=== PATIENT | male | born 1950 | race Caucasian/White ===

== ENCOUNTER 2016-10-16 12:37 | Inpatient (IN) | payer OTHER, MEDICARE ==
--- NOTE | ~2016-10-16 | DS ---
Discharge Summary [facility] [address] [place]. [address] NAME: CHANA POOLE : 48 STATUS : ADM IN [facility]#: [id number] AGE: 66 ADM/REG DATE : 10/16/16 MR#: [id number] REPORT SERV DATE: 10/19/16 DICTATED BY: ERLIN ARRIAZA DATE: 10/18/16 REPORT STATUS : Draft TRANSCRIBED BY: OSWALD DATE: 10/18/16 ADMISSION DATE: 10/16/2016 DISCHARGE DATE: 10/19/2016 PROCEDURES DONE: 1. 10/17/2015, chest x-ray: Lungs are clear. Heart size is normal. 2. 10/16/2016, x-ray right hip: There is fracture of the right femoral neck, with impaction. There is no evidence of dislocation, lytic or blastic areas, bony erosions, or periosteal reactions. 3. 10/17/2015, pelvis x-ray: Fracture of right femoral neck. 4. 10/17/2016, x-ray portable of pelvis: Postsurgical changes compatible with recent right hip arthroplasty for repair of previously demonstrated right femoral neck fracture. 5. 10/17/2016, operative report by Dr. Li. PREOPERATIVE DIAGNOSIS: Right hip displaced femoral neck fracture. POSTOPERATIVE DIAGNOSIS: Right hip displaced femoral neck fracture. PROCEDURE: Uncemented total right hip arthroplasty. CONSULT: Dr. Li for Ortho. REASON FOR ADMISSION: Fall from work. HISTORY OF HOSPITAL STAY: A 66-year-old white male with past medical history of coronary artery disease status post CABG x4 in July 2015, hypertension, hyperlipidemia, chronic kidney disease stage III, BPH, presenting with a fall at work. The patient was admitted for further evaluation from the result of fall from work. The patient apparently had a right femoral neck fracture. Dr. Mark was consulted from Orthopedics for further evaluation and treatment, and the patient underwent a right total hip arthroplasty on 10/17/2016. The patient had no complications. The patient is being recommended to home with home health. DISPOSITION: The patient is doing fine, no complaints. ACTIVITY: As tolerated. DIET: Cardiac. INSTRUCTION UPON DISCHARGE: 1. The patient to follow up with PMD within one to two weeks' time. 2. The patient to follow up with Orthopedics within one to two weeks' time. MEDICATIONS UPON DISCHARGE: 1. Amlodipine 10 mg p.o. daily. 2. Lipitor 40 mg p.o. daily. 3. Colace 100 mg p.o. b.i.d. Discharge Summary [address] [address] NAME: CHANA POOLE : 49 STATUS : ADM IN PAT#: [id number] AGE: 66 ADM/REG DATE : 10/16/16 MR#: [id number] REPORT SERV DATE: 10/19/16 DICTATED BY: ERLIN ARRIAZA DATE: 10/18/16 REPORT STATUS : Draft TRANSCRIBED BY: OSWALD DATE: 10/18/16 4. Iron 300 p.o. b.i.d. 5. Multivitamin one tablet daily. 6. Flomax 0.4 mg p.o. q.h.s. 7. Coumadin sliding scale. 8. Aspirin 81 mg p.o. q.h.s. 9. ProAir two puffs p.r.n. DIAGNOSES UPON DISCHARGE: 1. Fall from work with a right hip fracture. 2. Right hip fracture status post ORIF. 3. Hypertension. 4. Hyperlipidemia. 5. Chronic kidney disease stage III. 6. Benign prostatic hypertrophy. 7. Coronary artery disease status post CABG. SUSANNA/OSWALD Erlin Arriaza MD / [id number] CC: MD Maite Irwin M.D.
--- NOTE | ~2016-10-16 | HP ---
History And Physical [address] [place]. [address] NAME: CHANA POOLE : 48 STATUS : ADM Rajendra PAT#: [id number] AGE: 66 ADM/REG DATE : 10/16/16 MR#: [id number] REPORT SERV DATE: 10/17/16 DICTATED BY: LORENZO ROSENBERG DATE: 10/17/16 REPORT STATUS : Draft TRANSCRIBED BY: MODDary DATE: 10/17/16 DATE OF ADMISSION: 10/16/2016 CHIEF COMPLAINT: Right hip pain. HISTORY OF PRESENT ILLNESS: This is a 66-year-old male who fell 6 feet off a ladder working on his RV, and injured his right hip. He denies any pain or injury elsewhere with the exception of a very superficial abrasion to his right hand. No associated loss of consciousness, shortness of breath, chest pain, etc. PAST MEDICAL HISTORY: Angina, hypercholesterolemia, hypertension, coronary artery disease, enlarged prostate, and GERD. PAST SURGICAL HISTORY: Anterior laminectomy at C5-6, vasectomy, ACL surgery in 1998, knee scope, CABG x4 by Dr. Mayen last year. ALLERGIES: NONE. MEDICATIONS: See chart. SOCIAL HISTORY: He is a retired police specialist. A 53 years of cigarette use. No reported alcohol or illicit drug use. FAMILY HISTORY: No known anesthetic complications. REVIEW OF SYSTEMS: No recent illnesses. PHYSICAL EXAMINATION: GENERAL: He is alert and oriented x3, in no apparent distress. HEENT: Atraumatic, normocephalic. NECK: Supple. CHEST: Symmetric, nontender. LUNGS: Per Medicine evaluation. CV: Regular. ABDOMEN: Soft. No mass. EXTREMITIES: Both upper extremities are without acute trauma except for very superficial abrasion to the dorsum of the right hand. Left lower extremity is without acute trauma. Right lower extremity is shortened and externally rotated. SKIN: Intact. Compartments supple. 2+ pulses. NEURO: Sensorimotor without deficit. X-RAY: He has a comminuted right femoral neck fracture. ASSESSMENT: Comminuted right femoral neck fracture in a very active male. History And Physical [address] [address] NAME: CHANA POOLE : 48 STATUS : ADM Rajendra PAT#: [id number] AGE: 66 ADM/REG DATE : 10/16/16 MR#: [id number] REPORT SERV DATE: 10/17/16 DICTATED BY: LORENZO ROSENBERG DATE: 10/17/16 REPORT STATUS : Draft TRANSCRIBED BY: OSWALD DATE: 10/17/16 PLAN: Right total hip arthroplasty. Risks, benefits, etc., explained. The patient wishes to proceed. WTB/OSWALD Joseph Rosenberg M.D. / [id number] CC: MD Maite Irwin M.D.
--- NOTE | ~2016-10-16 | HP ---
History And Physical [address] [address] [place]. [address] NAME: CHANA POOLE : 48 STATUS : ADM Rajendra PAT#: [id number] AGE: 66 ADM/REG DATE : 10/16/16 MR#: [id number] REPORT SERV DATE: 10/16/16 DICTATED BY: ERLIN ARRIAZA DATE: 10/16/16 REPORT STATUS : Draft TRANSCRIBED BY: OSWALD DATE: 10/16/16 DATE OF ADMISSION: 10/16/2016 CHIEF COMPLAINT: Fall from work. HISTORY OF PRESENT ILLNESS: A 66-year-old white male with past medical history of coronary artery disease, status post CABG x4 in July 2015, hypertension, hyperlipidemia, chronic kidney disease stage III, BPH, presenting with a fall at work. 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 The patient was on a ladder, tried to straighten out an arming. As the patient was trying to straighten out the arming, the spring inside the arming popped loose and hit the patient's ladder which pushed the patient's ladder over causing a fall. The patient got up from the floor where he landed on the right side. The patient unfortunately landed on cement. As the patient tried to sit down and straighten out his leg he noticed that there was something wrong with his right leg/hip. 911 was called. Upon arrival on the ER, initial workup shows a right femoral neck fracture. Orthopedics has been consulted. The patient will be put n.p.o. past midnight and have an ORIF of the right hip. PAST MEDICAL HISTORY: As above. MEDICATIONS: The patient takes: 1. Albuterol two puffs inhaled p.r.n. 2. Norvasc 10 mg p.o. daily. 3. Aspirin 81 mg p.o. q.h.s. 4. Lipitor 40 mg p.o. q.h.s. 5. Lopid 600 mg p.o. b.i.d. 6. Flomax 0.4 mg p.o. q.h.s. ALLERGIES: TO MORPHINE AND DEMEROL. SOCIAL HISTORY: Nonsmoker, nondrinker. FAMILY HISTORY: Significant for coronary artery disease. REVIEW OF SYSTEMS: 10-point review of systems was conducted, which were negative except for above complaints. PHYSICAL EXAMINATION: VITAL SIGNS: Temp of 97.4, pulse of 68, respiratory rate 15, BP 133/53, O2 saturation 100% on room air. HEAD AND NECK: Normocephalic, atraumatic. CARDIOVASCULAR: S1, S2. Regular rate and rhythm. LUNGS: Good air entry. No wheeze, rales, or rhonchi. ABDOMEN: Soft, nontender, nondistended. Obese. EXTREMITIES: No clubbing, cyanosis, or edema. There is pain on the right hip status post fall. Neurologic: Awake, alert, and oriented x3. Cranial nerves II through XII grossly intact. History And Physical [address] [address] NAME: CHANA POOLE : 48 STATUS : ADM Rajendra PAT#: [id number] AGE: 66 ADM/REG DATE : 10/16/16 MR#: [id number] REPORT SERV DATE: 10/16/16 DICTATED BY: ERLIN ARRIAZA DATE: 10/16/16 REPORT STATUS : Draft TRANSCRIBED BY: OSWALD DATE: 10/16/16 LABORATORY DATA: Sodium 141, potassium 4.0, chloride 105, bicarb of 24, BUN 26, creatinine 1.45, glucose 153, calcium 8.9, GFR 49. WBC 14.1, hemoglobin 15.2, hematocrit 43.6, platelets 158. PT 13.7, INR 1.1. STUDIES: 1. Chest x-ray is clear. 2. X-ray of the hip shows fracture of right femoral neck. 3. X-ray of pelvis shows a right femoral neck fracture. 4. EKG shows normal sinus rhythm, 92 beats per minute. No gross ST-elevation expected. ASSESSMENT AND PLAN: 1. Fall with resulting right femoral neck fracture. We will consult Orthopedics for an open reduction internal fixation of right femoral neck. We will keep the patient n.p.o. post midnight. 2. Hypertension. Continue Norvasc. 3. Hyperlipidemia. Continue atorvastatin and gemfibrozil. 4. Benign prostatic hyperplasia. Continue the Flomax. 5. Chronic kidney disease. Start the patient on half NS at 80 mL an hour. 6. Coronary artery disease, status post coronary artery bypass graft, currently stable. 7. Deep venous thrombosis prophylaxis. We will give him heparin. SUSANNA/OSWALD Eriln Arriaza MD / [id number] CC: MD Maite Irwin M.D.
--- NOTE | ~2016-10-16 | OP ---
Record Of Operation [facility] [address] [place]. [address] NAME: CHANA POOLE : 48 STATUS : ADM IN PAT#: [id number] AGE: 66 ADM/REG DATE : 10/16/16 MR#: [id number] REPORT SERV DATE: 10/17/16 DICTATED BY: LORENZO ROSENBERG DATE: 10/17/16 REPORT STATUS : Draft TRANSCRIBED BY: OSWALD DATE: 10/17/16 DATE OF PROCEDURE: 10/17/2016 PREOPERATIVE DIAGNOSIS: Right hip displaced femoral neck fracture. POSTOPERATIVE DIAGNOSIS: Right hip displaced femoral neck fracture. PROCEDURE: Uncemented total hip arthroplasty, Tri-Lock. SIDE: Right. LOAN DOCUMENTS CLOSER: ANESTHESIA: See chart. SIZE: See chart. ESTIMATED BLOOD LOSS: About 100 mL. INDICATIONS FOR SURGERY: PROCEDURE IN DETAIL: The patient was taken to the operating room and placed supine on the table without incident. Anesthetic was induced per the anesthesiologist. A Riley catheter was placed by the nurse in the standard sterile technique. The correct side for the procedure was identified by preoperative markings and matched with the consent form. All personnel in the room were in agreement regarding the procedure, patient, and side. The patient was then carefully positioned and carefully padded and prepped and draped in the normal sterile fashion. The patient received prophylactic preoperative antibiotics at the appropriate time. The preoperative x-ray was brought up on the monitor. Again, this was reviewed with the staff in the room. According with the preoperative plan, and angled, an anterolateral incision was made centered over the trochanter extending from proximal posterior to distal anterior. Electrocautery was used to maintain meticulous hemostasis. The IT band was split in line with its fibers. A Charnley retractor was placed over saline moistened laps. A standard anterolateral approach to the hip was carried out dissecting in line with the vastus medialis fibers lifting the inferior 20% of the vastus medialis, proximally the interior 20% of the gluteus medius and gluteus minimus tendons off the anterior capsule. Periosteal elevator was used to elevate soft tissue gently directly off the proximal anterior femoral bone. Appropriate retractors were carefully placed. Complete anterior capsulectomy was performed. The hip was then carefully dislocated with a combination of traction maneuver by the medical records assistant and scooping the ball out of the socket with a Hohmann. A femoral neck osteotomy was marked according to what had been preoperatively planned with a broach as a template. The distance for the femoral neck osteotomy was measured with a ruler. A femoral neck osteotomy was made with an oscillating saw under appropriate retraction. Meticulous hemostasis was again obtained. The leg was then brought up out of the anterior bag and Record Of Operation [facility] [id number] [facility] [place]. [address] NAME: CHANA POOLE : 48 STATUS : ADM IN PAT#: [id number] AGE: 66 ADM/REG DATE : 10/16/16 MR#: [id number] REPORT SERV DATE: 10/17/16 DICTATED BY: LORENZO ROSENBERG DATE: 10/17/16 REPORT STATUS : Draft TRANSCRIBED BY: OSWALD DATE: 10/17/16 positioned with the lower extremity in external rotation and slight flexion. Acetabular retractors were placed carefully palpating to be sure that they were directly on the bone. The acetabular labrum was excised with electrocautery and rongeur. Pulvinar fat was removed with a large curette and rongeur and again meticulous hemostasis was obtained. Sequential reamers were used in the acetabulum to 1 mm. less than the final size which was chosen. This was felt to give excellent interference fit. The acetabular fossa was then copiously irrigated with pulsatile lavage and actual acetabular component was placed and impacted and checked to make sure it was down snug. The overall alignment was checked. The acetabular compression molding machine tender was then removed. Screws were placed in the standard fashion. A drill, depth gauge and self tapping screw placement taking care not to plunge as the drill holes were carefully placed. A trial liner was then placed and attention directed back to the proximal femur. The leg was placed back into the anterior bag. The proximal femur was prepared using a box chisel following by a T-handled reamer to determine the intramedullary alignment. This was followed by sequential broaches up to the final broach. Once it was seated in the appropriate position, a Calcar reamer was used to plane the proximal femur. Trial reduction was then done with a trial prosthetic ball and neck. A straight edge was used to compare the tip of the trochanter to center of the ball relationship to what had been noted on the preoperative x-ray. Careful reduction was then done of the total hip. Palpation was done to ascertain and compare leg lengths by palpating the nonoperative leg and also by checking soft tissue tension. The stability of the hip was checked in full extension with full external rotation and in full flexion with adduction, flexion and internal rotation. The hip was then re-dislocated with a bone hook. The femoral trial and femoral broach were removed. The acetabulum was then prepared under appropriate retraction by removing the trial liner. A central hole eliminator was placed and tightened. The shell was irrigated out. The actual insert was placed and impacted and then checked to be sure it was down snug with a joker. The leg was again positioned in the bag. The proximal femur exposed, irrigated and the actual thermal prosthesis was taken from the contracts representative and impacted. Once it was down, the trunnion was cleansed with a wet and dry lap and the prosthetic thermal head was placed and impacted and checked to be sure it was down snug. The acetabulum was irrigated and reduction was obtained. Again, we checked soft tissue tension, leg length and stability as described above. The hip was closed in a layered fashion with a 5 mm. Mersilene tape placed through a single drill hole in the proximal anterior/superior trochanter reattaching the gluteus medius and minimus fibers. The vastus lateralis, gluteus medius, and gluteus minimus were then closed in a sleeve. Drain was placed between the vastus and the IT band exiting distally anteriorly. The IT band was closed. Subcutaneous closure and skin closure were then obtained. A sterile dressing was applied. The patient was carefully positioned into a supine position and then awakened. The patient was then carefully transferred to the stretcher to be returned to the postoperative care unit without incident. COMPLICATION: None. SPECIMENS: Right femoral head. Record Of Operation [address] [place]. [address] NAME: CHANA POOLE : 48 STATUS : ADM IN [facility]#: [id number] AGE: 66 ADM/REG DATE : 10/16/16 MR#: [id number] REPORT SERV DATE: 10/17/16 DICTATED BY: LORENZO ROSENBERG DATE: 10/17/16 REPORT STATUS : Draft TRANSCRIBED BY: MODDary DATE: 10/17/16 WTB/MODL Joseph Rosenberg M.D. / [id number] CC: MD Maite Irwin M.D.
[~2016-10-16 12:37] MED LIST: ASAB PO; ELIQUIS 5 MG TAB5 MG PO; FLOMAX4 PO; IMDUR30 PO; LOP25 PO; NORCO1 TAB PO; PACERONE200 MG PO; PRILO PO; VITC500 PO; ZOCOR20 PO
[2016-10-16] MEDS ORDERED: NORV10 PO (14:50)
[2016-10-16] MEDS ORDERED: ASAB PO (14:51)
[2016-10-16] MEDS ORDERED: LIPITOR40 PO (14:52)
[2016-10-16] MEDS ORDERED: LOPID6 PO (14:52)
[2016-10-16] MEDS ORDERED: PROAIR HFA INH (14:55)
[2016-10-16] MEDS ORDERED: FLOMAX4 PO (14:56)
[2016-10-16 14:58] LABS: BASOPHILS 0.1 %; BASOPHILS ABSOLUTE 0.02 10/3/uL (0.0-0.16); EOSINOPHILS 0.2 %; EOSINOPHILS ABSOLUTE 0.03 10/3/uL (0.0-0.53); HEMATOCRIT 43.6 % (40.0-51.0); HEMOGLOBIN 15.2 g/dL (13.6-17.8); IMMATURE GRANULOCYTES 0.4 %; IMMATURE GRANULOCYTES ABSOLUTE 0.06 10/3/uL (0.0-0.11); LYMPHOCYTES 8.1 %; LYMPHOCYTES ABSOLUTE 1.14 10/3/uL (0.67-4.30); MANUAL DIFF NO %; MEAN CORPUS HGB CONC 34.9 g/dL (32.0-36.0); MEAN CORPUSCULAR HEMOGLOB 31.4 pg (26.0-34.0); MEAN CORPUSCULAR VOLUME 90.1 fL (80-100); MEAN PLATELET VOLUME 9.2 fL (9.2-13.0); MONOCYTES 5.2 %; MONOCYTES ABSOLUTE 0.73 10/3/uL (0.21-1.20); NEUTROPHILS ABSOLUTE 12.16 10/3/uL (2.02-8.40); PLATELET COUNT 158 10/3/uL (150-400); RBC DISTRIBUTION WIDTH 12.2 % (12.0-16.0); RED CELL COUNT 4.84 10/6/uL (4.7-6.1); WHITE BLOOD CELLS 14.1 10/3/uL (4.5-10.5)
[2016-10-16 15:05] LABS: INTERNATIONAL NORMAL RATI 1.1 UNITS (-); PARTIAL THROMBO TIME 27.5 SEC (22.5-37.2); PROTIME (NOT ORD) 13.7 SEC (12.0-14.5)
[2016-10-16 15:15] LABS: BUN (BLOOD UREA NITROGEN) 26 MG/DL (6-23); CALCIUM, SERUM 8.9 MG/DL (8.5-10.4); CHLORIDE, SERUM 105 MMOL/L (96-112); CO2 (CARBON DIOXIDE) 24 MMOL/L (24-34); CREATININE 1.45 MG/DL (0.70-1.30); GFR AFRICAN AMERICAN 57 ML/MIN (>=60); GFR NON AFRICAN AMERICAN 49 ML/MIN (>=60); GLUCOSE, SERUM 153 MG/DL (60-99); SODIUM, SERUM 141 MMOL/L (135-148)
[2016-10-17 04:51] LABS: BASOPHILS 0.1 %; BASOPHILS ABSOLUTE 0.01 10/3/uL (0.0-0.16); EOSINOPHILS 0.8 %; EOSINOPHILS ABSOLUTE 0.07 10/3/uL (0.0-0.53); HEMATOCRIT 41.2 % (40.0-51.0); HEMOGLOBIN 14.1 g/dL (13.6-17.8); IMMATURE GRANULOCYTES 0.3 %; IMMATURE GRANULOCYTES ABSOLUTE 0.03 10/3/uL (0.0-0.11); LYMPHOCYTES 23.4 %; LYMPHOCYTES ABSOLUTE 2.13 10/3/uL (0.67-4.30); MEAN CORPUS HGB CONC 34.2 g/dL (32.0-36.0); MEAN CORPUSCULAR HEMOGLOB 30.9 pg (26.0-34.0); MEAN CORPUSCULAR VOLUME 90.4 fL (80-100); MEAN PLATELET VOLUME 9.4 fL (9.2-13.0); MONOCYTES 10.2 %; MONOCYTES ABSOLUTE 0.93 10/3/uL (0.21-1.20); NEUTROPHILS 65.2 %; NEUTROPHILS ABSOLUTE 5.92 10/3/uL (2.02-8.40); PLATELET COUNT 170 10/3/uL (150-400); RBC DISTRIBUTION WIDTH 12.3 % (12.0-16.0); RED CELL COUNT 4.56 10/6/uL (4.7-6.1); WHITE BLOOD CELLS 9.1 10/3/uL (4.5-10.5)
[2016-10-17 04:57] LABS: MANUAL DIFF NO %
[2016-10-17 05:03] LABS: A/G RATIO 1.1 (0.7-1.9); ALBUMIN 3.2 G/DL (3.5-5.0); ALKALINE PHOSPHATASE 74 U/L (45-117); BUN (BLOOD UREA NITROGEN) 23 MG/DL (6-23); CALCIUM, SERUM 8.3 MG/DL (8.5-10.4); CHLORIDE, SERUM 106 MMOL/L (96-112); CHOL/HDL RATIO(NOT ORDER) 3.1 (0-5); CHOLESTEROL 129 MG/DL (< 200); CO2 (CARBON DIOXIDE) 24 MMOL/L (24-34); CREATININE 1.54 MG/DL (0.70-1.30); GFR AFRICAN AMERICAN 53 ML/MIN (>=60); GFR NON AFRICAN AMERICAN 46 ML/MIN (>=60); GLOBULIN 2.8 G/DL (2.5-4.1); GLUCOSE, SERUM 137 MG/DL (60-99); HDL CHOLESTEROL 41 MG/DL (> 39); LDL CHOLESTEROL 58 MG/DL (< 130); NON-HDL CHOLESTEROL 88 MG/DL (< 160); PHOSPHORUS, SERUM 2.9 MG/DL (2.5-4.5); POTASSIUM, SERUM 3.6 MMOL/L (3.5-5.3); SGOT(AST) 16 U/L (5-40); SGPT(ALT) 26 U/L (5-65); SODIUM, SERUM 140 MMOL/L (135-148); TOTAL BILIRUBIN 0.6 MG/DL (0-1.2); TRIGLYCERIDE 154 MG/DL (< 150)
[2016-10-17 12:30] LABS: ASCORBIC ACID (UR NOT ORDER) NEG (NEG); BILIRUBIN, URINE NEGATIVE (NEG); KETONE, URINE NEGATIVE (NEG); LEUKOCYTE ESTERASE(NOT OR MOD (NEG); WBC (NOT ORDERED) (RFLEX) 25 (0-5)
[2016-10-18 06:13] LABS: INTERNATIONAL NORMAL RATI 1.1 UNITS (-); PROTIME (NOT ORD) 14.3 SEC (12.0-14.5)
[2016-10-18 06:22] LABS: BASOPHILS 0.1 %; BASOPHILS ABSOLUTE 0.01 10/3/uL (0.0-0.16); EOSINOPHILS 0.3 %; EOSINOPHILS ABSOLUTE 0.03 10/3/uL (0.0-0.53); IMMATURE GRANULOCYTES 0.3 %; IMMATURE GRANULOCYTES ABSOLUTE 0.03 10/3/uL (0.0-0.11); LYMPHOCYTES 9.6 %; LYMPHOCYTES ABSOLUTE 1.03 10/3/uL (0.67-4.30); MEAN CORPUS HGB CONC 34.3 g/dL (32.0-36.0); MEAN CORPUSCULAR VOLUME 90.4 fL (80-100); MEAN PLATELET VOLUME 9.7 fL (9.2-13.0); MONOCYTES 8.4 %; MONOCYTES ABSOLUTE 0.91 10/3/uL (0.21-1.20); NEUTROPHILS 81.3 %; NEUTROPHILS ABSOLUTE 8.76 10/3/uL (2.02-8.40); PLATELET COUNT 155 10/3/uL (150-400); RBC DISTRIBUTION WIDTH 12.3 % (12.0-16.0); RED CELL COUNT 3.87 10/6/uL (4.7-6.1); WHITE BLOOD CELLS 10.8 10/3/uL (4.5-10.5)
[2016-10-18 06:35] LABS: BUN (BLOOD UREA NITROGEN) 21 MG/DL (6-23); CHLORIDE, SERUM 104 MMOL/L (96-112); CO2 (CARBON DIOXIDE) 24 MMOL/L (24-34); CREATININE 1.53 MG/DL (0.70-1.30); GFR AFRICAN AMERICAN 54 ML/MIN (>=60); GFR NON AFRICAN AMERICAN 46 ML/MIN (>=60); PHOSPHORUS, SERUM 2.2 MG/DL (2.5-4.5); POTASSIUM, SERUM 4.3 MMOL/L (3.5-5.3); SGOT(AST) 27 U/L (5-40); SGPT(ALT) 25 U/L (5-65); SODIUM, SERUM 139 MMOL/L (135-148); TOTAL BILIRUBIN 0.3 MG/DL (0-1.2)
[2016-10-18 06:36] LABS: ALKALINE PHOSPHATASE 62 U/L (45-117); GLUCOSE, SERUM 166 MG/DL (60-99)
[2016-10-18 06:39] LABS: MANUAL DIFF NO %
[2016-10-19 05:51] LABS: HEMATOCRIT 29.2 % (40.0-51.0)
[2016-10-19 05:59] LABS: INTERNATIONAL NORMAL RATI 1.1 UNITS (-)
[2016-10-19] MEDS ORDERED: PCET PO (12:48)
[2016-10-19] MEDS ORDERED: C5 PO (12:48)
[2016-10-19] MEDS ORDERED: MVI PO (12:48)
[2016-10-20 06:39] LABS: HEMATOCRIT 26.9 % (40.0-51.0); HEMOGLOBIN 9.2 g/dL (13.6-17.8)
[2016-10-20 06:41] LABS: INTERNATIONAL NORMAL RATI 1.2 UNITS (-); PROTIME (NOT ORD) 14.9 SEC (12.0-14.5)
== END 2016-10-20 16:43 | disposition home or self-care (01) | DRG 470 ==
LOC: ER 12:37 → 3SO 15:30
PROVIDERS: Emergency Medicine; Hospitalist; Specialist
PROC: 0SR902A Replacement of Right Hip Joint with Metal on Polyethylene Synthetic Substitute, Uncemented, Open Approach (ICD-10-PCS; principal; 2016-10-16)
DX: S72.001A Fracture of unspecified part of neck of right femur, initial encounter for closed fracture (principal); N17.9 Acute kidney failure, unspecified; I25.10 Atherosclerotic heart disease of native coronary artery without angina pectoris; Z95.1 Presence of aortocoronary bypass graft; E78.5 Hyperlipidemia, unspecified; I12.9 Hypertensive chronic kidney disease with stage 1 through stage 4 chronic kidney disease, or unspecified chronic kidney disease; N40.0 Benign prostatic hyperplasia without lower urinary tract symptoms; N18.3 Chronic kidney disease, stage 3 (moderate)
CPT/HCPCS: 36415; 71010; 72170; 73502-RT; 80048; 80053; 80061; 81001; 83735; 84100; 85014; 85018; 85025; 85610; 85730; 86850; 86900; 86901; 87086; 87641; 88305; 88311; 93005; 96374; 96375; 97110-GP; 97116-GP; 97161-GP; 97165-GO; 97535-GO; 99285; A9270-GY; C1713; C1776; J0690; J1170; J1885; J2274; J2405; J2710; J2795; J3010; J3370